=== PATIENT | male | born 1955 | race Two or more races ===

== ENCOUNTER 2022-08-23 10:37 | Outpatient (CLI) | payer OTHER | END 2022-08-23 10:53 | disposition home or self-care (01) | LOC: LAB 10:37 | PROVIDERS: ATTEND Urology | DX: R97.20 Elevated prostate specific antigen [PSA] (principal); N30.00 Acute cystitis without hematuria ==

== ENCOUNTER 2022-09-14 07:10 | Outpatient (CLI) | payer OTHER | END 2022-09-14 07:23 | disposition home or self-care (01) | LOC: SONOGRAMA 07:10 | PROVIDERS: ATTEND Urology | DX: C61 Malignant neoplasm of prostate (principal) ==

== ENCOUNTER → 2022-12-13 06:15 | Outpatient (CLI) | payer OTHER | END | disposition home or self-care (01) | LOC: LAB 06:15 | PROVIDERS: ATTEND Urology | DX: C61 Malignant neoplasm of prostate (principal); I11.9 Hypertensive heart disease without heart failure; E11.9 Type 2 diabetes mellitus without complications ==

== ENCOUNTER 2022-12-13 09:46 | Outpatient (CLI) | payer OTHER | END 2022-12-13 09:50 | disposition home or self-care (01) | LOC: NUCLEAR 09:46 | PROVIDERS: ATTEND Urology | DX: C61 Malignant neoplasm of prostate (principal); I11.0 Hypertensive heart disease with heart failure; E11.9 Type 2 diabetes mellitus without complications ==

== ENCOUNTER 2022-12-17 07:15 | Outpatient (CLI) | payer OTHER | END 2022-12-17 07:24 | disposition home or self-care (01) | LOC: NUCLEAR 07:15 | PROVIDERS: ATTEND Urology | DX: C61 Malignant neoplasm of prostate (principal); I11.9 Hypertensive heart disease without heart failure; E11.9 Type 2 diabetes mellitus without complications | CPT/HCPCS: 78452; 93017; A9500 ==

== ENCOUNTER 2022-12-28 08:15 | Inpatient (IN) | payer OTHER ==
[2022-12-28] MEDS ORDERED: COZAAR100 MG PO (09:57)
[2022-12-28] MEDS ORDERED: ALOPURINOL PO (09:58)
[2022-12-28] MEDS ORDERED: NEURONTIN800 MG PO (09:58)
[2022-12-28] MEDS ORDERED: GLUMETZA500 MG PO (09:59)
[2022-12-28] MEDS ORDERED: SIMVASTA PO (09:59)
[2023-01-02] MEDS ORDERED: FENOFIBRATE145 MG (07:57)
[2023-01-02] MEDS ORDERED: SIMVASTATIN20 MG (07:57)
[2023-01-02] MEDS ORDERED: ALLOPURINOL300 MG (07:57)
== END 2023-01-04 09:15 | disposition home or self-care (01) | DRG 708 ==
LOC: O/R 01-02 05:15 → SURG 01-02 07:00 → SURH 01-02 13:22
PROVIDERS: ADMIT Urology; ATTEND Urology
PROC: 0VT30ZZ Resection of Bilateral Seminal Vesicles, Open Approach (ICD-10-PCS; 2023-01-02)
PROC: 07BC0ZZ Excision of Pelvis Lymphatic, Open Approach (ICD-10-PCS; 2023-01-02)
PROC: 0VT00ZZ Resection of Prostate, Open Approach (ICD-10-PCS; principal; 2023-01-02 07:00)
DX: C61 Malignant neoplasm of prostate (principal); Z20.822 Contact with and (suspected) exposure to COVID-19

== ENCOUNTER 2023-05-14 06:27 | Outpatient (CLI) | payer OTHER ==
[~2023-05-14 06:27] MED LIST: ALLOPURINOL300 MG; ALOPURINOL PO; COZAAR100 MG PO; FENOFIBRATE145 MG; GLUMETZA500 MG PO; NEURONTIN800 MG PO; SIMVASTA PO; SIMVASTATIN20 MG
== END 2023-05-14 06:28 | disposition home or self-care (01) ==
LOC: LAB 06:27
PROVIDERS: ATTEND Urology
DX: C61 Malignant neoplasm of prostate (principal); N39.0 Urinary tract infection, site not specified